=== PATIENT | female | born 1960 | race Caucasian/White ===

== ENCOUNTER 2019-09-18 06:38 | Day surgery (SDC) | payer OTHER, SELFPAY ==
[2019-09-18 07:11] VITALS: BP 125/72; PULSE 78; RESP 15; TEMP 36.4; O2SAT 99; BMI 27.5
[2019-09-18] MEDS: SODIUM CHLORIDE 0.9% 1,000 ML 200 ML IV ×2 (07:41→08:55)
--- NOTE | 2019-09-18 07:45 | PM.HP.1 ---
History of Present Illness History of Present Illness Date Patient Seen: 09/18/19 Time Patient Seen: 07:45 Chief complaint: [id number] Narrative: This is a 59 yo woman with personal history of colon polyps. She has had many colonoscopies over the years, she says this is her 6th colonoscopy procedure. Her last 1 was 3 years ago and per the patient's report precancerous polyps were found and removed. She says she has had a difficult time with the prep, and threw up last night. She is concerned that she may have some adherent stool on the seals of the colon. I explained to her that we will do the best we can to remove that and to get a good image of her colon and remove any polyps that we find. She denies any recent history of melena, hematochezia, abdominal pain, or unexplained changes in weight. She denies any medications or any significant medical history other than history of polyps. Patient History Medical History Colon polyp (Acute) Family & Social History Social History: household members spouse Meds Home Medications and Allergies Home Medications Medication Instructions Recorded Confirmed Type No Known Home Medications 09/18/19 09/18/19 History Allergies Allergy/AdvReac Type Severity Reaction Status Date / Time No Known Drug Allergies Allergy Verified 09/18/19 07:08 Review of Systems Review of Systems Narrative: Thirteen system review is negative other than as mentioned below and in HPI. Exam Vital Signs (past 8 hours): - 09/18/19 07:11 Temperature 97.6 F Pulse Rate 78 Respiratory Rate 15 Blood Pressure 125/72 Pulse Oximetry 99 Oxygen Delivery Method Room Air Assessment & Plan Assessment and plan (1) Colon polyp: Problem details: Risks and benefits of colonoscopy and possible polypectomy were discussed with the patient. Risk of bleeding and perforation were discussed. She desires to proceed with her colonoscopy procedure. Current visit: No Status: Acute Quality VTE Deep Vein Thrombosis/Pulmonary Embolism Present on Admission: No
[2019-09-18] MEDS: ONDANSETRON 4 MG/2 ML INJ IV (07:49)
--- NOTE | 2019-09-18 08:41 | PM.OP.ENDO ---
Operative Date/Time/Diagnoses Date of procedure: 09/18/19 Time of procedure: 08:41 Pre-op diagnosis: history of colon polyps Post-op diagnosis: same Procedure & Clinicians Study performed: surveillance colonoscopy Same procedure as scheduled: Yes Indications: Personal history of colon polyps Surgeon: Margret Benavides Procedure Notes SCOAP/Timeout: Performed Procedure in detail: The patient was brought to the room and placed in left lateral decubitus position with all bony prominences padded. A time-out was performed and then the patient was given procedural sedation starting with 4 mg of Versed and [100] mcg of fentanyl. Vitals were monitored throughout the procedure and remained stable. Once adequately sedated the procedure was begun. A rectal exam was performed revealing [no abnormalities]. The colonoscope was then introduced to the rectum and advanced to the cecum in the usual fashion. [The colon was extremely tortuous with deeply folded rectal valves. It took significantly prolonged procedural time as well as many difficult maneuvers in order to reach the cecum safely.]The cecum was identified by the appendiceal orifice, the mucosal try fold, and the ileocecal valve. The scope was then retracted while rotating side to side and examining each mucosal fold. [No polyps or abnormalities were seen within the colon other than its extreme tortuosity.] At the conclusion procedure retroflexion was performed and [small grade 1 internal hemorrhoids without stigmata of bleeding were seen]. The scope was then withdrawn from the rectum the procedure was concluded. The patient tolerated the procedure well was transferred to the PACU in stable condition. Scope withdrawal time: 9 Sedation minutes: 50 Specimen(s): none sent Complications: none Impression: Normal that extremely tortuous colon. No polyps were seen. Post-procedure Recommendations: Colonscopy in 5 years (Due to polyp history, and extreme tortuosity of the colon) Follow up: as needed Disposition: PACU
[2019-09-18] MEDS: MIDAZOLAM 5 MG/5 ML VIAL IV (08:43)
[2019-09-18] MEDS: fentaNYL 250 MCG/5 ML INJ IV (08:43)
[2019-09-18 08:49] VITALS: BP 120/60; PULSE 69; RESP 12; TEMP 36.6; O2SAT 98
[2019-09-18 08:54] VITALS: BP 120/57; PULSE 68; RESP 11; O2SAT 97
[2019-09-18 09:00] VITALS: BP 126/58; PULSE 79; RESP 18; O2SAT 99
[2019-09-18 09:15] VITALS: BP 120/56; PULSE 72; RESP 15; TEMP 36.2; O2SAT 98
[2019-09-18 09:35] VITALS: BP 109/61; PULSE 73; RESP 20; TEMP 36.7; O2SAT 99
== END 2019-09-18 09:40 | disposition home or self-care (01) ==
PROVIDERS: Visit Provider Surgery
PROC: 0DJD8ZZ Inspection of Lower Intestinal Tract, Via Natural or Artificial Opening Endoscopic (ICD-10-PCS; CPT 45378; principal; 2019-09-18 07:45)
DX: Z12.11 Encounter for screening for malignant neoplasm of colon (principal); Z86.010 Personal history of colon polyps; K64.0 First degree hemorrhoids
CPT/HCPCS: 45378; 99152; 99153; J2250; J2405; J3010

== ENCOUNTER 2021-08-13 18:33 | Observation (INO) | payer OTHER, SELFPAY ==
[2021-08-13] VITALS (9 sets, daily range): BP systolic 145–146; BP diastolic 73–83; PULSE 68–86; RESP 18–32; TEMP 36.2–37; O2SAT 96–100; BMI 27.7
--- NOTE | 2021-08-13 19:04 | DI.US.S_ITS ---
PROCEDURE: US ABDOMEN LIMITED INDICATIONS: EPIGASTRIC PAIN X 4 DAYS TECHNIQUE: Real-time focused scanning was performed of the abdomen, with image documentation. COMPARISON: None. FINDINGS: Gallbladder demonstrates sludge and calculi within its lumen with a 15 mm stone lodged in the gallbladder neck. No gallbladder wall thickening. Negative sonographic Johns sign. IMPRESSION: Gallbladder sludging calculi with a gallbladder neck calculus. No evidence of cholecystitis. Dictated by: Juanjo Duran M.D. on 08/13/2021 at 20:12 Approved by: Juanjo Duran M.D. on 08/13/2021 at 20:13
--- NOTE | 2021-08-13 19:08 | ED.ABDPAIN ---
HPI - Abdominal Pain <HAWA Kern - Last Filed: 08/13/21 21:10> General Chief Complaint: Abdominal Pain Stated Complaint: UPPER ABD PAIN Time Seen by Provider: 08/13/21 18:41 Source: patient and family Mode of arrival: Family Vehicle Limitations: no limitations History of Present Illness HPI narrative: 61-year-old female presents to the emergency department with epigastric pain that started 3 days ago on 08/10/2021 after dinner. Patient reports that was a low-fat dinner, the pain lasted for 4 hours she took some Pepto and some Tums which did not really help. She states that on Saturday her pain returned and she tried the same medications with the same results. She reports that Saturday has been the worst pain thus far, it wakes her up at night, it comes and goes, she denies any calf, she does endorse that she has been constipated since . Yesterday she took some senna for this but has not had a normal sized bowel movement was . She denies any nausea or vomiting, she denies any recent fever, chills, chest pain, shortness of breath, back pain, dysuria, or any other lower abdominal pain. She reports that this pain is not reproducible by palpation, and she states that it is uncomfortable to wear bra and her breasts seem heavier than usual. She states that her pain comes and goes, currently her pain is a 2/10, but when it comes it is a 8/10. Related Data Previous Rx's Medication Instructions Recorded hydrocodone 5 mg-acetaminophen 325 1 tab PO BID PRN 7 Days #14 tab 08/13/21 mg tablet ondansetron 4 mg disintegrating 4 mg PO Q8H PRN #10 tab 08/13/21 tablet polyethylene glycol 3350 17 17 g PO DAILY PRN 7 Days #119 g 08/13/21 gram/dose oral powder (Miralax) MDD Two doses each day Allergies Allergy/AdvReac Type Severity Reaction Status Date / Time No Known Drug Allergies Allergy Verified 08/13/21 18:41 Review of Systems <HAWA Kern - Last Filed: 08/13/21 21:10> Review of Systems Narrative: General: denies fever, chills Head/Neck: denies headache, neck pain Eyes: denies visual changes, eye pain Cardio: denies chest pain, palpitations Respiratory: denies shortness of breath, cough GI: Endorses dull epigastric pain that does not radiate, she says that it comes and goes, denies nausea, vomiting, or diarrhea, endorses having constipation for 3 days which is a normal problem for her. : denies dysuria, hematuria MSK: denies joint pain, muscle weakness Skin: denies rash, itching Neuro: denies numbness, tingling Patient History <HAWA Kern - Last Filed: 08/13/21 21:10> Medical History (Updated 08/13/21 @ 20:56 by HAWA Kern) Colon polyp Social History household members: spouse Smoking Status: Former smoker Smoking Status: Former smoker tobacco type: cigarettes alcohol intake frequency: a few times a month Substance Use Type: does not use Exam <HAWA Kern - Last Filed: 08/13/21 21:10> Narrative Exam Narrative: Independently reviewed vitals signs and nursing notes. General: Awake, alert, nontoxic, no cardiorespiratory distress Head/Neck: Atraumatic, neck full range of motion Eyes: EOMI, conjunctiva normal Nose: nares patent, no rhinorrhea Mouth/Throat: moist mucus membranes, posterior pharynx normal, no oral lesions Cardio: Regular rate and rhythm, no peripheral edema Respiratory: respirations unlabored without wheezing, stridor, or rales. No retractions. GI: Abdomen soft, nontender to palpation, palpation to epigastric region does not elicit pain, no CVA tenderness MSK: Moves all extremities, neurovascularly intact Skin: Normal capillary refill, no rash Neuro: Normal speech and cognition, normal gait Initial Vital Signs Initial Vital Signs: Vital Signs Temperature 98.6 F 08/13/21 18:41 Pulse Rate 83 08/13/21 18:41 Respiratory Rate 18 08/13/21 18:41 Blood Pressure 146/83 H 08/13/21 18:41 Pulse Oximetry 100 08/13/21 18:41 <Geo Bonner DO - Last Filed: 08/13/21 22:25> Initial Vital Signs Initial Vital Signs: Vital Signs Temperature 98.6 F 08/13/21 18:41 Pulse Rate 83 08/13/21 18:41 Respiratory Rate 18 08/13/21 18:41 Blood Pressure 146/83 H 08/13/21 18:41 Pulse Oximetry 100 08/13/21 18:41 Course <Gunjan HAWA Cooper - Last Filed: 08/13/21 21:10> Orders Ordered: ED Orders 08/13/21 18:47 EKG-12 Lead Stat 08/13/21 19:00 Complete Blood Count AUTO DIFF Stat Comprehensive Metabolic Panel Stat Lipase Stat Troponin & CK Cardiac Panel Stat 08/13/21 19:04 US abdomen limited Stat 08/13/21 19:54 Urinalysis and Microscopic Stat Hydromorphone HCl (Hydromorphone 0.5 Mg Inj) 0.5 mg IV Q2H PRN PRN Reason: Pain, Severe (7-10) Piperacillin Sod/Tazobactam (Sod 3.375 gm/ Sodium Chloride) 100 mls @ 25 mls/hr IV Q8H [facility] Sodium Chloride (Normal Saline 0.9%) 1,000 mls @ 100 mls/hr IV CONT [facility] Ondansetron HCl (Ondansetron 4 Mg/2 Ml Inj) 4 mg IV Q4HR PRN PRN Reason: Nausea And Vomiting Discontinued Medications Hydrocodone Bitart/Acetaminophen (Hydrocodone/Acet 5/325 Tablet) 1 tab PO NOW ONE Stop: 08/13/21 19:49 Last Admin: 08/13/21 20:06 Dose: 1 tab Documented by: RICH Al Hydrox/Mg Hydrox/Simethicone 20 ml/ Lidocaine HCl 15 ml 0 ml PO NOW ONE Stop: 08/13/21 19:12 Last Admin: 08/13/21 20:12 Dose: Not Given Documented by: RICH Piperacillin Sod/Tazobactam (Sod 4.5 gm/ Sodium Chloride) 100 mls @ 200 mls/hr IV Q8H [facility] Piperacillin Sod/Tazobactam (Sod 4.5 gm/ Sodium Chloride) 100 mls @ 200 mls/hr IV NOW ONE Stop: 08/13/21 21:29 Last Infusion: 08/13/21 21:48 Dose: 0 mls/hr Documented by: Admin: 08/13/21 21:27 Dose: 200 mls/hr Documented by: RICH Polyethylene Glycol (Polyethylene Glycol 3350 17 Gm Powd.Pack) 17 gm PO NOW ONE Stop: 08/13/21 19:55 Last Admin: 08/13/21 20:09 Dose: 17 gm Documented by: RICH Consultations Consultation #1: Consultation with Dr. Castellano from [facility] Vital Signs Vital signs: Vital Signs - 8 hr 08/13/21 18:41 08/13/21 19:03 08/13/21 19:05 Temperature 98.6 F Pulse Rate 83 83 76 Respiratory Rate 18 30 H 32 H Blood Pressure 146/83 H 145/75 H Pulse Oximetry 100 98 08/13/21 19:40 08/13/21 20:00 08/13/21 20:30 Temperature Pulse Rate 80 70 68 Respiratory Rate 26 H 23 Blood Pressure Pulse Oximetry 100 98 99 <Geo Bonner DO - Last Filed: 08/13/21 22:25> Orders Ordered: ED Orders 08/13/21 18:47 EKG-12 Lead Stat 08/13/21 19:00 Complete Blood Count AUTO DIFF Stat Comprehensive Metabolic Panel Stat Lipase Stat Troponin & CK Cardiac Panel Stat 08/13/21 19:04 US abdomen limited Stat 08/13/21 19:54 Urinalysis and Microscopic Stat Hydromorphone HCl (Hydromorphone 0.5 Mg Inj) 0.5 mg IV Q2H PRN PRN Reason: Pain, Severe (7-10) Piperacillin Sod/Tazobactam (Sod 3.375 gm/ Sodium Chloride) 100 mls @ 25 mls/hr IV Q8H [facility] Sodium Chloride (Normal Saline 0.9%) 1,000 mls @ 100 mls/hr IV CONT [facility] Ondansetron HCl (Ondansetron 4 Mg/2 Ml Inj) 4 mg IV Q4HR PRN PRN Reason: Nausea And Vomiting Discontinued Medications Hydrocodone Bitart/Acetaminophen (Hydrocodone/Acet 5/325 Tablet) 1 tab PO NOW ONE Stop: 08/13/21 19:49 Last Admin: 08/13/21 20:06 Dose: 1 tab Documented by: RICH Al Hydrox/Mg Hydrox/Simethicone 20 ml/ Lidocaine HCl 15 ml 0 ml PO NOW ONE Stop: 08/13/21 19:12 Last Admin: 08/13/21 20:12 Dose: Not Given Documented by: RICH Piperacillin Sod/Tazobactam (Sod 4.5 gm/ Sodium Chloride) 100 mls @ 200 mls/hr IV Q8H [facility] Piperacillin Sod/Tazobactam (Sod 4.5 gm/ Sodium Chloride) 100 mls @ 200 mls/hr IV NOW ONE Stop: 08/13/21 21:29 Last Infusion: 08/13/21 21:48 Dose: 0 mls/hr Documented by: Admin: 08/13/21 21:27 Dose: 200 mls/hr Documented by: RICH Polyethylene Glycol (Polyethylene Glycol 3350 17 Gm Powd.Pack) 17 gm PO NOW ONE Stop: 08/13/21 19:55 Last Admin: 08/13/21 20:09 Dose: 17 gm Documented by: RICH Vital Signs Vital signs: Vital Signs - 8 hr 08/13/21 18:41 08/13/21 19:03 08/13/21 19:05 Temperature 98.6 F Pulse Rate 83 83 76 Respiratory Rate 18 30 H 32 H Blood Pressure 146/83 H 145/75 H Pulse Oximetry 100 98 08/13/21 19:40 08/13/21 20:00 08/13/21 20:30 Temperature Pulse Rate 80 70 68 Respiratory Rate 26 H 23 Blood Pressure Pulse Oximetry 100 98 99 MDM - Abdominal Pain <HAWA Kern - Last Filed: 08/13/21 21:10> Lab Data Result diagrams: 08/13/21 19:00 08/13/21 19:00 Labs: Lab Results 08/13/21 08/13/21 08/13/21 Range/Units 19:00 19:00 19:54 WBC 10.3 (4.5-11.0) X10^3/uL RBC 4.04 (4.0-5.2) X10^6/uL Hgb 12.3 (12.0-16.0) g/dL Hct 36.9 (36-46) % MCV 91.2 (80-100) fL MCH 30.5 (26-34) PG MCHC 33.4 (30-36) % RDW 13.9 (11.6-14.8) % Plt Count 454 H (150-400) X10^3/uL Neut % (Auto) 76.7 H (50-75) % Lymph % (Auto) 16.5 L (25-40) % [place] % (Auto) 5.9 (3-14) % Eos % (Auto) 0.3 L (2-4) % Baso % (Auto) 0.6 (0-2) % Neut # (Auto) 7900 H (3729-7320) /uL Lymph # (Auto) 1700 (9428-2292) /uL [place] # (Auto) 600 (0-900) /uL Eos # (Auto) 0 (0-450) /uL Baso # (Auto) 100 (0-100) /uL Sodium 135 L (137-145) mmol/L Potassium 3.8 (3.4-5.1) mmol/L Chloride 100 (98-107) mmol/L Carbon Dioxide 24 (22-32) mmol/L BUN 8 (7-17) mg/dL Creatinine 0.55 (0.52-1.04) mg/dL Estimated GFR > 60.0 (>60) mL/min BUN/Creatinine Ratio 14.5 (6-22) Glucose 135 H (80-110) mg/dL Calcium 8.5 (8.4-10.2) mg/dL Total Bilirubin 0.6 (0.2-1.3) mg/dL AST 31 (14-36) IU/L ALT 20 (<35) IU/L Alkaline Phosphatase 56 (38-126) U/L Total Creatine Kinase 52 (30-135) U/L CK-MB (CK-2) TNP CK-MB (CK-2) Rel Index TNP Troponin I < 0.012 (0.01-0.034) ng/mL Total Protein 7.7 (6.3-8.2) g/dL Albumin 4.5 (3.5-5.0) g/dL Globulin 3.2 (1.7-4.1) g/dL Albumin/Globulin Ratio 1.4 (1.0-2.8) Lipase 454 H (23-300) U/L Urine Color Yellow Urine Appearance Clear Urine pH 6.5 (4.5-8.0) Ur Specific [place] <=1.005 (1.000-1.035) Urine Protein Negative (Negative) Urine Glucose (UA) Negative (Negative) g/dL Urine Ketones Negative (NEGATIVE) Urine Occult Blood 1+ H (Negative) Urine Nitrate Negative (Negative) Urine Bilirubin Negative (NEGATIVE) Urine Urobilinogen 0.2 (0.2) E.U./dL Ur Leukocyte Esterase Negative (NEGATIVE) Urine RBC 0-1/hpf (0-5/HPF) Urine WBC None seen (0-5/HPF) Urine Bacteria None seen (None) Ur Culture Indicated? Cult not indicated Point of care testing: Urine Dip Bedside Urine Glucose Negative Bedside Urine Bilirubin - Negative Bedside Urine Ketone - Negative Urine Specific [place] 1.005 Bedside Urine Occult Blood +/- Bedside Urine pH 6.0 Bedside Urine Protein - Negative Bedside Urine Urobilinogen +/- 1mg Bedside Urine Nitrite - Negative Bedside Urine Leukocytes - Negative Esterase Imaging Data US - abdomen: Radiologist's Impression: PROCEDURE: US ABDOMEN LIMITED ? INDICATIONS:? EPIGASTRIC PAIN X 4 DAYS ? TECHNIQUE:? Real-time focused scanning was performed of the abdomen, with image documentation.? ? COMPARISON:? None. ? FINDINGS:? Gallbladder demonstrates sludge and calculi within its lumen with a 15 mm stone lodged in the gallbladder neck.? No gallbladder wall thickening.? Negative sonographic Johns sign. ? IMPRESSION:? Gallbladder sludging calculi with a gallbladder neck calculus.? No evidence of cholecystitis. ? ? Dictated by: Juanjo Duran M.D. on 08/13/2021 at 20:12 ? ? Approved by: Juanjo Duran M.D. on 08/13/2021 at 20:13 ? [facility] Narrative Medical decision making narrative: 61-year-old female with history of colon polyps presents to the ED for dull, intermittent epigastric pain that started after dinner 3 days ago. She reports that it has progressively gotten worse each day since,it does not radiate, she has been afebrile, without nausea, vomiting, or diaphoresis. She also has had constipation for the last 4 days. Lab work today was pertinent for an elevated lipase at 454, transaminases were within normal limits, white blood cell count was not elevated, patient did not have any peritoneal signs on exam. Patient is nontoxic appearing, tolerating p.o., her pain is well controlled at this time. Abdominal Ultrasound shows gallbladder sludging calculi with a 15 mm gallbladder neck calculus.? No evidence of cholecystitis, negative sonographic Johns sign. Consulted Dr. Castellano regarding consideration for admission and he accepts pt for admission. <Geo Ha, DO - Last Filed: 08/13/21 22:25> Lab Data Labs: Lab Results 08/13/21 08/13/21 08/13/21 Range/Units 19:00 19:00 19:54 WBC 10.3 (4.5-11.0) X10^3/uL RBC 4.04 (4.0-5.2) X10^6/uL Hgb 12.3 (12.0-16.0) g/dL Hct 36.9 (36-46) % MCV 91.2 (80-100) fL MCH 30.5 (26-34) PG MCHC 33.4 (30-36) % RDW 13.9 (11.6-14.8) % Plt Count 454 H (150-400) X10^3/uL Neut % (Auto) 76.7 H (50-75) % Lymph % (Auto) 16.5 L (25-40) % [place] % (Auto) 5.9 (3-14) % Eos % (Auto) 0.3 L (2-4) % Baso % (Auto) 0.6 (0-2) % Neut # (Auto) 7900 H (4292-7009) /uL Lymph # (Auto) 1700 (0110-1980) /uL [place] # (Auto) 600 (0-900) /uL Eos # (Auto) 0 (0-450) /uL Baso # (Auto) 100 (0-100) /uL Sodium 135 L (137-145) mmol/L Potassium 3.8 (3.4-5.1) mmol/L Chloride 100 (98-107) mmol/L Carbon Dioxide 24 (22-32) mmol/L BUN 8 (7-17) mg/dL Creatinine 0.55 (0.52-1.04) mg/dL Estimated GFR > 60.0 (>60) mL/min BUN/Creatinine Ratio 14.5 (6-22) Glucose 135 H (80-110) mg/dL Calcium 8.5 (8.4-10.2) mg/dL Total Bilirubin 0.6 (0.2-1.3) mg/dL AST 31 (14-36) IU/L ALT 20 (<35) IU/L Alkaline Phosphatase 56 (38-126) U/L Total Creatine Kinase 52 (30-135) U/L CK-MB (CK-2) TNP CK-MB (CK-2) Rel Index TNP Troponin I < 0.012 (0.01-0.034) ng/mL Total Protein 7.7 (6.3-8.2) g/dL Albumin 4.5 (3.5-5.0) g/dL Globulin 3.2 (1.7-4.1) g/dL Albumin/Globulin Ratio 1.4 (1.0-2.8) Lipase 454 H (23-300) U/L Urine Color Yellow Urine Appearance Clear Urine pH 6.5 (4.5-8.0) Ur Specific [place] <=1.005 (1.000-1.035) Urine Protein Negative (Negative) Urine Glucose (UA) Negative (Negative) g/dL Urine Ketones Negative (NEGATIVE) Urine Occult Blood 1+ H (Negative) Urine Nitrate Negative (Negative) Urine Bilirubin Negative (NEGATIVE) Urine Urobilinogen 0.2 (0.2) E.U./dL Ur Leukocyte Esterase Negative (NEGATIVE) Urine RBC 0-1/hpf (0-5/HPF) Urine WBC None seen (0-5/HPF) Urine Bacteria None seen (None) Ur Culture Indicated? Cult not indicated Point of care testing: Urine Dip Bedside Urine Glucose Negative Bedside Urine Bilirubin - Negative Bedside Urine Ketone - Negative Urine Specific [place] 1.005 Bedside Urine Occult Blood +/- Bedside Urine pH 6.0 Bedside Urine Protein - Negative Bedside Urine Urobilinogen +/- 1mg Bedside Urine Nitrite - Negative Bedside Urine Leukocytes - Negative Esterase Discharge Plan Departure Patient Disposition: Home Clinical Impression: Acute gallstone pancreatitis <Geo Bonner DO - Last Filed: 08/13/21 22:25> Cosign ED Attending Coskofiature Attestation: I was immediately available in the department for consultation. This documentation has been reviewed and I agree with assessment and plan. Supervised by Geo Bonner DO
[2021-08-13 19:24] LABS: Add Manual Diff / Slide Review NO; Basophils Absolute Auto 100 /uL (0-100); Basophils Percent Auto 0.6 % (0-2); Eosinophils Absolute Auto 0 /uL (0-450); Eosinophils Percent Auto 0.3 % (2-4); Hematocrit 36.9 % (36-46); Hemoglobin 12.3 g/dL (12.0-16.0); Lymphocytes Absolute Auto 1700 /uL (1100-4500); Lymphocytes Percent Auto 16.5 % (25-40); Mean Corpuscular HGB Conc 33.4 % (30-36); Mean Corpuscular Hemoglobin 30.5 PG (26-34); Mean Corpuscular Volume 91.2 fL (80-100); Monocytes Absolute Auto 600 /uL (0-900); Monocytes Percent Auto 5.9 % (3-14); Neutrophils Absolute Auto 7900 /uL (1500-7000); Neutrophils Percent Auto 76.7 % (50-75); Platelet Count 454 X10^3/uL (150-400); Red Blood Cell Count 4.04 X10^6/uL (4.0-5.2); Red Cell Distribution Width 13.9 % (11.6-14.8); White Blood Cell Count 10.3 X10^3/uL (4.5-11.0)
[2021-08-13 19:29] LABS: Alanine Aminotransferase 20 IU/L (<35); Albumin 4.5 g/dL (3.5-5.0); Alkaline Phosphatase 56 U/L (38-126); Aspartate Aminotransferase 31 IU/L (14-36); BUN Creatinine Ratio 14.5 (6-22); Bilirubin Total 0.6 mg/dL (0.2-1.3); Blood Urea Nitrogen 8 mg/dL (7-17); Calcium 8.5 mg/dL (8.4-10.2); Carbon Dioxide 24 mmol/L (22-32); Chloride 100 mmol/L (98-107); Creatine Kinase 52 U/L (30-135); Estimated Glomerular Filt Rate > 60.0 mL/min (>60); Glucose 135 mg/dL (80-110); Sodium 135 mmol/L (137-145)
[2021-08-13 19:41] LABS: Troponin I < 0.012 ng/mL (0.01-0.034)
[2021-08-13 19:43] LABS: Albumin Globulin Ratio 1.4 (1.0-2.8); Globulin 3.2 g/dL (1.7-4.1); Lipase 454 U/L (23-300); Potassium 3.8 mmol/L (3.4-5.1); Total Protein 7.7 g/dL (6.3-8.2)
[2021-08-13 19:56] LABS: Appearance Urine UA CLEAR; Bilirubin Urine UA NEGATIVE (NEGATIVE); Color Urine UA YELLOW; Glucose Urine UA NEGATIVE (Negative); Ketones Urine UA NEGATIVE (NEGATIVE); Leukocyte Esterase Urine UA NEGATIVE (NEGATIVE); Nitrite Urine UA NEGATIVE (Negative); Occult Blood Urine UA 1+ (Negative); Protein Urine UA NEGATIVE (Negative); Specific Gravity Urine UA <=1.005 (1.000-1.035); Urobilinogen Urine UA 0.2 E.U./dL (0.2)
[2021-08-13 20:01] LABS: pH Urine UA 6.5 (4.5-8.0)
[2021-08-13 20:02] LABS: Bacteria Urine None Seen; Culture Indicated Urine Cult Not Indicated; RBC Urine 0-1/HPF (0-5/HPF); WBC Urine None Seen (0-5/HPF)
[2021-08-13] MEDS: HYDROCODONE/ACET 5/325 TABLET 1 TAB PO (20:06)
[2021-08-13] MEDS: polyethylene glycoL 3350 17 GM POWD.PACK PO (20:09)
--- NOTE | 2021-08-13 20:29 | PC.NURSE ---
Paged Dr crockett for provider at 2024 keira called back at 2027 forwarded call to ramy Castillo for consult
[2021-08-13] MEDS: PIPERACILLIN/TAZO 4.5 GM in SODIUM CHLORIDE 0.9% 100 ML 200 ML IV (21:27)
--- NOTE | 2021-08-13 22:49 | PC.NURSE ---
Pt arrived to room 222 from E.R. and when asked, stated was not swabbed for covid in E.R. This chief underwriter confirmed with E.R. staff this is true. Pt remains with mask in place and swab was done and sent to lab. Awaiting covid results prior to lengthy conversation with pt to complete admission process. Pt denies pain. Moves all extremities independently in bed. NPO. Oral swabs provided with instructions for use.
[2021-08-13] MEDS: SODIUM CHLORIDE 0.9% 1,000 ML 100 ML IV (23:11)
[2021-08-13 23:26] LABS: COVID19 - ADMIT (NP swab/PCR) Negative (Negative)
[2021-08-14] VITALS (18 sets, daily range): BP systolic 79–147; BP diastolic 40–78; PULSE 71–88; RESP 14–22; TEMP 36.3–37.7; O2SAT 93–100; BMI 27.7
--- NOTE | 2021-08-14 | PATH_ITS ---
[facility] Accession Number: [id number] . 01 Material submitted: . gallbladder - GALLBLADDER . 02 Diagnosis: Gallbladder, Cholecystectomy: Cholelithiasis with chronic active cholecystitis. No evidence of neoplasm. V 08/17/2021 1136 Local . 02 Electronically signed: . Dylan Bland MD, PhD, Pathologist NPI- [id number] . 01 Gross description: . The specimen is received in formalin, labeled gallbladder and consists of an 8.5 x 4.5 x 3.5 cm intact gallbladder with a 0.2 cm in diameter cystic duct. The serosa is quinteros-pink and smooth to wrinkled. Opening reveals green viscous bile with multiple green-brown multifaceted choleliths ranging from 1.5-2.2 cm. The mucosa is quinteros-pink and trabeculated, and the wall thickness measures 0.3 cm. Director Loss Prevention sections are submitted, to include the en face cystic duct margin (blue), in cassette A1. ([id number]) /V 08/16/2021 1108 Local . 02 Pathologist provided ICD-10: K80.60, K81.2 . 02 CPT . 355465 Performed at: [address] [facility] Cyt[facility] [address], [place], [place] [id number] MD Min Avalos MD Phone: [phone] Performed at: 02 [facility] [address] [place], [place] [id number] MD Gunjan Yu MD Phone: [phone]
[2021-08-14] MEDS: PIPERACILLIN/TAZO 3.375 GM in SODIUM CHLORIDE 0.9% 100 ML 25 ML IV (00:42)
[2021-08-14] MEDS: HYDROMORPHONE 0.5 MG INJ IV ×4 (00:43→16:11)
--- NOTE | 2021-08-14 07:19 | PM.HP.1 ---
History of Present Illness History of Present Illness Date Patient Seen: 08/14/21 Time Patient Seen: 07:19 Chief complaint: UPPER ABD PAIN Narrative: Arlen is a healthy 61 y.o woman admitted for abdominal pain. she presented with a day of right upper quadrant / epigastric pain associated bloating and nausea. No previous similar episodes. At admission afebrile, WBC 10, total bilirubin 0.6 lipase 454 normal LFTs. Ultrasound RUQ demonstrates a 1.5 cm gallstone stuck in the neck of the gallbladder there was no associated pericholesticfluid or wall thickening. No previous abdominal surgery. No cardiopulmonary disease not on anticoagulation. Patient History Medical History (Updated 08/14/21 @ 07:26 by Anthony Castellano MD) Colon polyp Family & Social History Social History: household members spouse Prior Living Arrangements House Safety & Behavioral: Feels Safe in Current Yes Environment Been Physically Hurt or No Threatened By a Person Suicidal Ideation Description None Suicide Plan Description No Plan Tobacco & Substance use: Smoking Status Former smoker alcohol intake current alcohol intake frequency holiday/special occasion Substance Use Type does not use Meds Home Medications and Allergies Home Medications Medication Instructions Recorded Confirmed Type No Known Home Medications 08/14/21 08/14/21 History Allergies Allergy/AdvReac Type Severity Reaction Status Date / Time No Known Drug Allergies Allergy Verified 08/13/21 18:41 Exam Vital Signs (past 8 hours): - 08/14/21 00:35 08/14/21 05:28 Temperature 97.8 F Pulse Rate 73 Respiratory Rate 16 Blood Pressure 127/76 Pulse Oximetry 100 100 Oxygen Delivery Method Room Air Oxygen Flow Rate 0 Narrative Exam Narrative: Constitutional-She is oriented to person, place and time. No apparent distress Cardiovascular- regular rate, no peripheral edema Pulmonary-unlabored respiratory effort, no audible wheezing Abdominal-mildly tender RUQ/Epigastric no peritonitis. Musculoskeletal-no cyanosis or clubbing Neurological-nonfocal, normal strength throughout Skin-warm and dry Objective Labs Result Diagrams: 08/13/21 19:00 08/13/21 19:00 Labs: Laboratory Results - last 24 hr 08/13/21 08/13/21 08/13/21 19:00 19:00 19:54 WBC 10.3 RBC 4.04 Hgb 12.3 Hct 36.9 MCV 91.2 MCH 30.5 MCHC 33.4 RDW 13.9 Plt Count 454 H Neut % (Auto) 76.7 H Lymph % (Auto) 16.5 L Mcintosh % (Auto) 5.9 Eos % (Auto) 0.3 L Baso % (Auto) 0.6 Neut # (Auto) 7900 H Lymph # (Auto) 1700 Mcintosh # (Auto) 600 Eos # (Auto) 0 Baso # (Auto) 100 Sodium 135 L Potassium 3.8 Chloride 100 Carbon Dioxide 24 BUN 8 Creatinine 0.55 Estimated GFR > 60.0 BUN/Creatinine Ratio 14.5 Glucose 135 H Calcium 8.5 Total Bilirubin 0.6 AST 31 ALT 20 Alkaline Phosphatase 56 Total Creatine Kinase 52 CK-MB (CK-2) TNP CK-MB (CK-2) Rel Index TNP Troponin I < 0.012 Total Protein 7.7 Albumin 4.5 Globulin 3.2 Albumin/Globulin Ratio 1.4 Lipase 454 H Urine Color Yellow Urine Appearance Clear Urine pH 6.5 Ur Specific [place] <=1.005 Urine Protein Negative Urine Glucose (UA) Negative Urine Ketones Negative Urine Occult Blood 1+ H Urine Nitrate Negative Urine Bilirubin Negative Urine Urobilinogen 0.2 Ur Leukocyte Esterase Negative Urine RBC 0-1/hpf Urine WBC None seen Urine Bacteria None seen Ur Culture Indicated? Cult not indicated SARS-CoV-2 (PCR) 08/13/21 22:30 WBC RBC Hgb Hct MCV MCH MCHC RDW Plt Count Neut % (Auto) Lymph % (Auto) Mcint[place] % (Auto) Eos % (Auto) Baso % (Auto) Neut # (Auto) Lymph # (Auto) Mcintosh # (Auto) Eos # (Auto) Baso # (Auto) Sodium Potassium Chloride Carbon Dioxide BUN Creatinine Estimated GFR BUN/Creatinine Ratio Glucose Calcium Total Bilirubin AST ALT Alkaline Phosphatase Total Creatine Kinase CK-MB (CK-2) CK-MB (CK-2) Rel Index Troponin I Total Protein Albumin Globulin Albumin/Globulin Ratio Lipase Urine Color Urine Appearance Urine pH Ur Specific [place] Urine Protein Urine Glucose (UA) Urine Ketones Urine Occult Blood Urine Nitrate Urine Bilirubin Urine Urobilinogen Ur Leukocyte Esterase Urine RBC Urine WBC Urine Bacteria Ur Culture Indicated? SARS-CoV-2 (PCR) Negative Assessment & Plan Assessment and plan (1) Biliary colic: Status: Acute Assessment & Plan narrative: 61 y.o healthy female admitted for biliary colic. Work up reviewed with patient. Normal LFTs and bilirubin mild elevation in lipase 454. Ultrasound of the RUQ demonstrates a 1.5 cm gallstone impacted in gallbladder neck without additional signs of acute cholecystitis. I recommended that we proceed to the operating room for laparoscopic cholecystectomy. Risks benefits and alternatives were discussed. Technical details of the operation were discussed. Operative risks including bleeding, infection, damage to surrounding structures, conversion to open bile duct injury were discussed. Her questions have been answered and she is in agreement with this plan. Time Spent With Patient Critical Care time: I spent a total of [] minutes of critical care time on this patient's care today; this time is exclusive of procedural time. Quality VTE Deep Vein Thrombosis/Pulmonary Embolism Present on Admission: No
[2021-08-14] MEDS: SODIUM CHLORIDE 0.9% 1,000 ML 100 ML IV (11:51)
--- NOTE | 2021-08-14 12:19 | CM.DANOTE ---
DCP/Assessment: Reviewed chart. Patient is a 61yr old female admitted to [facility] with abdominal pain. PCP listed is Alexandrea Haynes. Primary payor is 1)[employer]. Met with patient explained CM/SW role. Patient resting comfortably in bed. Patient reports that she is completely I with all ADL's. Patient resides with spouse [place] At this time patient does not anticipate any d/c planning needs. Patient expected to have gallbladder surgery this afternoon. P: Home when stable. [facility] Discharge Planning/Care Management CM Discharge Assessment Start: 08/14/21 12:09 Freq: Status: Active Protocol: Document 08/14/21 12:09 K[facility] (Rec: 08/14/21 12:19 [facility] [id number]) Discharge Planning Assessment Assigned Facility Maintenance Manager LAUREN Alexis Contact Information Ha Don Wang (spouse) # [phone] Advance Directives? No History Provided By Patient,Medical Record Prior Living Arrangements House Household Members spouse Type of transporation used prior to Drives own vehicle admit Independent with ADL's Yes Is patient alert and oriented? Yes Caregiver for Another No Barriers to Discharge No Discharge Plan Home Transportation Arrangement Family to provide transport Referrals Initiated None needed Whiteboard Updated in Patient Room with Yes name and ext. # of Facility Maintenance Manager Review Status In Process Next Review Type Continued Stay Review
[2021-08-14] MEDS: ONDANSETRON 4 MG/2 ML INJ IV ×2 (16:12→21:11)
[2021-08-14] MEDS: LACTATED RINGERS 1,000 ML 42 ML IV ×2 (18:46→19:53)
--- NOTE | 2021-08-14 19:43 | SUR.OPER ---
Supine on padded OR bed, head on pillow, safety belt at thigh, left arm padded and tucked at side. Right arm secured on padded arm board <90 degrees abduction. Legs uncrossed. Padded footboard in place. Tape over blanket to secure lower legs.
[2021-08-14] MEDS: BUPIVACAINE 0.25% (PF) VIAL 30 ML INJ (19:54)
[2021-08-14] MEDS: EPINEPHrine 1 MG/ML 0.15 MG INJ (19:55)
--- NOTE | 2021-08-14 19:56 | SUR.OPER ---
UPPER PARTIAL IN LABELED DENTURE CUP TO PACU WITH PATIENT
--- NOTE | 2021-08-14 20:35 | PM.OP.1 ---
Operative Date/Time/Diagnoses Date of procedure: 08/14/21 Time of procedure: 20:35 Pre-op diagnosis: Acute cholecystitis Post-op diagnosis: same Procedure & Clinicians Procedure: Laparoscopic cholecystectomy Same procedure as scheduled: Yes Indications: Acute cholecystitis/gallstone pancreatitis Surgeon: Aleyda Oconnell Click Yes if Unassisted: Yes Anesthesia Type: General Operative Notes Findings: Acute cholecystitis Closure Type: primary Specimen(s): other (Gallbladder) Estimated Blood Loss (mL): 15 Procedure in detail: Preop diagnosis: Acute cholecystitis/gallstone pancreatitis Postop diagnosis: Same Operative procedure: Laparoscopic cholecystectomy Surgeon: Yessica Oconnell MD Anesthesiologist: Jaz Leblanc MD Findings: Acute cholecystitis Procedure: Patient placed in a supine position. Prepped and draped in sterile fashion to expose her abdomen. Infraumbilical port site was placed using open technique and a 12 mm port. Insufflation began all the ports were placed under direct vision including a 10 mm port in the midepigastrium, and 2 5 mm ports in the right lateral abdomen. Gallbladder had to be decompressed prior to lifting it cephalad for exposure. Local adhesions were taken down in the process as well. I then was able to identify the cystic duct and dissected it free. It was clipped once proximally twice distally and transected. Cystic artery was identified clipped once proximally once distally and transected. Gallbladder removed the possible after cautery and ultimately good hemostasis. We did have spillage of bile but no stones and the operative site. This was irrigated to a clear return. The gallbladder is placed into an Endo-Catch bag and pulled through the infraumbilical port site intact. I then surveyed the abdomen again for hemostasis prior to removing ports and proceeded with closure. Closure consisted of interrupted 0 Vicryl for fascial closure of the infraumbilical port site. Skin was closed a running 4-0 Vicryl. Steri-Strips and sterile dressings were placed. Patient was awakened, extubated, taken to recovery room in stable condition. Needle, instrument, sponge counts were correct. Blood loss: 15 mL Specimen: Gallbladder Complications: none Post-operative Condition: stable Disposition: PACU Plan for aftercare: Return to acute care unit for possible discharge in a.m.
[2021-08-14] MEDS: OXYCODONE/ACETAMINOPHEN 5/325 TABLET 1 TAB PO (21:02)
[2021-08-14] MEDS: CELECOXIB 100 MG CAPSULE 200 MG PO (22:01)
[2021-08-15] VITALS: BP 109/58; PULSE 92; RESP 16; TEMP 36.6; O2SAT 95
[2021-08-15 05:30] VITALS: BP 104/60; PULSE 84; RESP 18; TEMP 36.6; O2SAT 96
[2021-08-15] MEDS: HYDROCODONE/ACET 5/325 TABLET 2 TAB PO (06:40)
[2021-08-15 07:35] VITALS: BP 108/63; PULSE 80; RESP 16; TEMP 36.5; O2SAT 96
[2021-08-15 08:42] LABS: Alanine Aminotransferase 62 IU/L (<35); Aspartate Aminotransferase 68 IU/L (14-36); BUN Creatinine Ratio 18.4 (6-22); Bilirubin Total 0.3 mg/dL (0.2-1.3); Blood Urea Nitrogen 9 mg/dL (7-17); Calcium 8.1 mg/dL (8.4-10.2); Carbon Dioxide 24 mmol/L (22-32); Chloride 102 mmol/L (98-107); Estimated Glomerular Filt Rate > 60.0 mL/min (>60); Glucose 133 mg/dL (80-110); Potassium 4.1 mmol/L (3.4-5.1); Sodium 131 mmol/L (137-145)
[2021-08-15 08:43] LABS: Albumin 3.2 g/dL (3.5-5.0); Albumin Globulin Ratio 1.2 (1.0-2.8); Alkaline Phosphatase 56 U/L (38-126); Globulin 2.7 g/dL (1.7-4.1); HEMOLYSIS < 15 (0-50); Total Protein 5.9 g/dL (6.3-8.2)
[2021-08-15] MEDS: CELECOXIB 100 MG CAPSULE 200 MG PO (09:33)
--- NOTE | 2021-08-15 10:21 | P.DS_ITS ---
History of Present Illness History of Present Illness Date Patient Seen: 08/15/21 Time Patient Seen: 10:22 Chief complaint: UPPER ABD PAIN Narrative: acute cholecystitis and pancreatitis Discharge Providers Provider Date of admission: 08/13/21 20:58 Discharge Date: 08/15/21 Primary care physician: Alexandrea Haynes Discharge provider: Aleyda Oconnell MD Summary Hospital Course Discharge Diagnosis: acute cholecystitis and pancreatitis Hospital Course: IV hydration, pain control and lap mojgan Status at Discharge Cognitive/behavioral status at discharge: at baseline, oriented Overall status at discharge: patient is progressing back to baseline Time Spent with Patient Time spent: Less than 30 minutes Exam Vital Signs (past 8 hours): - 08/15/21 05:30 08/15/21 07:35 Temperature 97.8 F 97.7 F Pulse Rate 84 80 Respiratory Rate 18 16 Blood Pressure 104/60 108/63 Pulse Oximetry 96 96 Oxygen Delivery Method Room Air Oxygen Flow Rate 0 Narrative Exam Narrative: abdomen is soft with tenderness at incisions. Benign Objective Labs Result Diagrams: 08/13/21 19:00 08/15/21 08:06 Labs: Laboratory Results - last 24 hr 08/15/21 08:06 Sodium 131 L Potassium 4.1 Chloride 102 Carbon Dioxide 24 BUN 9 Creatinine 0.49 L Estimated GFR > 60.0 BUN/Creatinine Ratio 18.4 Glucose 133 H Calcium 8.1 L Total Bilirubin 0.3 AST 68 H ALT 62 H Alkaline Phosphatase 56 Total Protein 5.9 L Albumin 3.2 L Globulin 2.7 Albumin/Globulin Ratio 1.2 PFSH Medical History Colon polyp Social History household members: spouse Smoking Status: Former smoker alcohol intake: current Discharge Assessment & Plan Assessment and Plan Assessment: s/p lap mojgan w/o complication Plan of Treatment: Home. No heavy lifting for 4 weeks Discharge Plan Discharge Plan Patient Disposition: Home Discharge orders & Medications Prescriptions: New hydrocodone-acetaminophen 5-325 mg Tablet 2 tab PO Q4HR PRN (Reason: Pain, Severe (7-10)) Qty: 20 RF: 0 celecoxib [Celebrex] 100 mg Capsule 200 mg PO BID Qty: 40 RF: 1 Follow up/Referrals: Anthony Castellano MD [Physician] - Alexandrea Haynes [Primary Care Provider] - Diet/Activity/Treatments Diet: Diet as Tolerated Activity: No heavy lifting greater than 15 lbs for 4 weeks Skin/Wound/Dressing Care Other wound treatment: remove outer dressing tomorrow and shower. Leave steri strips on for 10 days and take off Visit Report/Discharge Packet Instructions: DI for Open Cholecystectomy, DI for Laparoscopy, DI for Prescription Opioid Use, [facility]: Wound Care Stand Alone Forms: Surgery Discharge Discharge Data Primary Care Provider: Alexandrea Haynes Attending Provider: Anthony Castellano Quality VTE Deep Vein Thrombosis/Pulmonary Embolism Present on Admission: No
--- NOTE | 2021-08-15 11:17 | PC.NURSE ---
A&Ox4. VSS. Pain 11/13 in abdomen, PRN [place] helped a lot. Denies any nausea or vomiting. Lap sites with minimal shadow drainage. discharge paper work reviewed. Questions answered. IV removed. Personal belongings returned. Off of unit at 11:17, wheeled to personal vehicle. driving home.
== END 2021-08-15 11:15 | disposition home or self-care (01) ==
LOC: ED 20:56 → AC 20:59
PROVIDERS: Surgery; Admitting Provider Surgery; Emergency Provider Nurse Practitioner Critical Care Medicine; PCP Physician Assistant Medical; Visit Provider Surgery
PROC: 0FT44ZZ Resection of Gallbladder, Percutaneous Endoscopic Approach (ICD-10-PCS; CPT 47562; principal; 2021-08-14 18:15)
DX: K81.0 Acute cholecystitis (principal); K85.10 Biliary acute pancreatitis without necrosis or infection; Z20.822 Contact with and (suspected) exposure to COVID-19
CPT/HCPCS: 47562; 36415; 76705; 80053; 81001; 81003; 82550; 83690; 84484; 85025; 87635; 93005; 93010; 94762; 96361; 96365; 96366; 96375; 96376; 99219; 99284; C9803; G0378; J0171; J0330; J1100; J1170; J1885; J2250; J2405; J2543; J2704; J3010